=== PATIENT | female | born 1985 | race Hispanic/Latino ===

== ENCOUNTER 2017-07-14 15:52 | Emergency (ER) | payer BC ==
[2017-07-14 16:33] LABS: BASOPHILS % (AUTO) 0.4 % (0.0-5.0); EOSINOPHILS % (AUTO) 1.1 % (0.0-8.0); HEMATOCRIT 44.6 % (36-48); LYMPHOCYTES % (AUTO) 22.8 % (21.0-51.0); MEAN CORPUSCULAR HEMOGLOBIN 28.5 pg (27.0-33.0); MEAN CORPUSCULAR VOLUME 86.3 fL (79-99); MONOCYTES % (AUTO) 8.7 % (3.0-13.0); PLATELET COUNT (AUTO) 172 K/uL (130-400); RED BLOOD CELL COUNT(AUTO) 5.17 MIL/uL (4.00-5.50); RED CELL DISTRIBUTION WIDTH 13.8 % (11.0-15.5); WHITE BLOOD COUNT (AUTO) 12.2 K/uL (4.8-10.8)
[2017-07-14 16:45] LABS: CARBON DIOXIDE 30 mmol/L (21-32); CHLORIDE 104 mmol/L (101-111); GLOMERULAR FILTR. RATE CALC 68 mL/min (>60); GLUCOSE,RANDOM 97 mg/dL (70-105); POTASSIUM 3.8 mmol/L (3.5-5.1); SODIUM SERUM 139 mmol/L (136-145); UREA NITROGEN, BLOOD 11 mg/dL (7-18)
[2017-07-14 16:57] LABS: B-TYPE NATRIURETIC PEPTIDE 9 pg/mL (0-100)
[2017-07-14 17:00] LABS: ALANINE AMINOTRANSFERASE 28 U/L (12-78); ALBUMIN 3.1 g/dL (3.5-5.0); ASPARTATE AMINOTRANSFERASE 20 U/L (10-37); BILIRUBIN,TOTAL 1.2 mg/dL (0.2-1.0); CREATINE KINASE MB < 0.5 ng/mL (0.5-3.6); CREATINE KINASE, TOTAL 60 U/L (21-232); TOTAL PROTEIN, SERUM 7.5 g/dL (6.0-8.3)
[2017-07-14] MEDS ORDERED: CLINDAMYCIN 600 MG/D5% WATER 50 ML IV ONE (18:01)
== END 2017-07-14 19:48 | disposition home or self-care (01) ==
LOC: EDH 15:52
DX: R07.89 Other chest pain (principal); R60.0 Localized edema; I10 Essential (primary) hypertension; E78.5 Hyperlipidemia, unspecified; E11.9 Type 2 diabetes mellitus without complications
CPT/HCPCS: 36415; 71045; 80053; 82550; 82553; 83880; 84484; 85025; 93005; 93971; 96365; 99285; J3490

== ENCOUNTER 2018-11-11 09:53 | Emergency (ER) | payer BC, OTHER ==
[2018-11-11] MEDS ORDERED: DEXAMETHASONE SOD PHOSPHATE 10MG/ML 1ML VIAL ONE (10:04)
[2018-11-11] MEDS ORDERED: SODIUM CHLORIDE 0.9% 100 ML IV ONE (10:05)
[2018-11-11 10:37] LABS: RAPID GROUP A STREP NEGATIVE (NEGATIVE)
[2018-11-11 11:26] LABS: BASOPHILS % (AUTO) 0.5 % (0.0-5.0); EOSINOPHILS % (AUTO) 0.3 % (0.0-8.0); HEMATOCRIT 46.9 % (36-48); MEAN CORPUSCULAR HEMOGLOBIN 28.7 pg (27.0-33.0); MEAN CORPUSCULAR HGB CONC 32.4 g/dL (32.0-36.0); MEAN CORPUSCULAR VOLUME 88.6 fL (79-99); NEUTROPHILS % (AUTO) 81.2 % (40.0-77.0); PLATELET COUNT (AUTO) 177 K/uL (130-400); RED BLOOD CELL COUNT(AUTO) 5.29 MIL/uL (4.00-5.50); RED CELL DISTRIBUTION WIDTH 14.1 % (11.0-15.5); WHITE BLOOD COUNT (AUTO) 15.1 K/uL (4.8-10.8)
[2018-11-11 11:36] LABS: CREATININE 0.9 mg/dL (0.5-1.5); POTASSIUM 3.9 mmol/L (3.5-5.1)
[2018-11-11] MEDS ORDERED: IOHEXOL-350 75 ML VIAL IV ONE (12:11)
== END 2018-11-11 16:42 | disposition home or self-care (01) ==
LOC: EDH 09:53
DX: J03.90 Acute tonsillitis, unspecified (principal); J35.03 Chronic tonsillitis and adenoiditis
CPT/HCPCS: 36415; 70491; 80048; 83605; 85025; 87040 ×2; 87081; 87110; 87804 ×2; 87880; 96374; 96375; 99285; J1100; Q9967

== ENCOUNTER 2020-05-06 14:00 | Emergency (ER) | payer OTHER ==
[2020-05-06] MEDS ORDERED: SODIUM CHLORIDE 0.9% 1000ML 1,000 ML IV ONE (14:42)
[2020-05-06 15:00] LABS: BASOPHILS % (AUTO) 0.1 % (0.0-5.0); EOSINOPHILS % (AUTO) 1.1 % (0.0-8.0); HEMATOCRIT 44.2 % (36-48); LYMPHOCYTES % (AUTO) 19.2 % (21.0-51.0); MEAN CORPUSCULAR HEMOGLOBIN 26.9 pg (27.0-33.0); MEAN CORPUSCULAR HGB CONC 30.8 g/dL (32.0-36.0); MEAN CORPUSCULAR VOLUME 87.4 fL (79-99); MONOCYTES % (AUTO) 6.3 % (3.0-13.0); PLATELET COUNT (AUTO) 229 K/uL (130-400); RED BLOOD CELL COUNT(AUTO) 5.06 MIL/uL (4.00-5.50); RED CELL DISTRIBUTION WIDTH 15.5 % (11.0-15.5); WHITE BLOOD COUNT (AUTO) 10.9 K/uL (4.8-10.8)
[2020-05-06 15:11] LABS: CREATININE 1.3 mg/dL (0.5-1.5); POTASSIUM 4.4 mmol/L (3.5-5.1)
[2020-05-06 15:15] LABS: ALBUMIN 2.6 g/dL (3.5-5.0); BILIRUBIN,TOTAL 0.7 mg/dL (0.2-1.0)
[2020-05-06] MEDS ORDERED: IOHEXOL-350 75 ML VIAL IV ONE (16:06)
[2020-05-06 16:11] LABS: APPEARANCE,URINE Clear (CLEAR); BILIRUBIN,URINE Negative (NEGATIVE); COLOR,URINE Yellow (YELLOW); GLUCOSE, URINE (UA) Negative (NEGATIVE); KETONES,URINE Negative (NEGATIVE); LEUKOCYTE ESTERASE ,URINE Negative (NEGATIVE); NITRATE,URINE Negative (NEGATIVE); OCCULT BLOOD,URINE Negative (NEGATIVE); PROTEIN,URINE 300 mg/dL (NEGATIVE); UROBILINOGEN,URINE 0.2 mg/dL (0.2-1.0)
[2020-05-06 16:13] LABS: HCG,QUAL RESULT NEGATIVE (NEGATIVE)
[2020-05-06 16:23] LABS: BACTERIA,URINE Few /HPF (None Seen); MUCUS,URINE Few LPF (None Seen); RBC,URINE 0-1 /HPF (0-1); SQUAMOUS EPITHELIAL CELL,UR Few /HPF (0-2); WBC,URINE 0-1 /HPF (0-1)
[2020-05-06] MEDS ORDERED: ONDANSETRON HCL 4 MG/2 ML VIAL ONE (16:47)
[2020-05-06] MEDS ORDERED: KETOROLAC TROMETHAMINE 30MG/ML ONE (16:47)
[2020-05-06] MEDS ORDERED: MORPHINE SULFATE 2 MG/ML 1ML SYG ONE (16:47)
[2020-05-06] MEDS ORDERED: CEFTRIAXONE SODIUM 500 MG VIAL ONE (18:05)
[2020-05-06] MEDS ORDERED: AZITHROMYCIN 250 MG TABLET PO ONE (18:06)
[2020-05-06] MEDS ORDERED: LIDOCAINE HCL-MPF 1% 2ML VIAL ONE (18:06)
== END 2020-05-06 18:28 | disposition home or self-care (01) ==
LOC: EDH 14:00
DX: R10.2 Pelvic and perineal pain (principal); E78.5 Hyperlipidemia, unspecified; E11.9 Type 2 diabetes mellitus without complications; I10 Essential (primary) hypertension; Z87.891 Personal history of nicotine dependence
CPT/HCPCS: 36415; 74177; 76856; 80053; 81001; 81025; 83690; 84702; 85025; 87486; 87797; 96361; 96372; 96374; 96375; 99285; J0696; J1885; J2405; J3490; J7030; Q9967

== ENCOUNTER 2020-09-18 23:12 | Inpatient (IN) | payer SELFPAY ==
[~2020-09-18] VITALS: Ht 160 cm; Wt 212.9 kg
[2020-09-18 23:50] LABS: BASOPHILS % (AUTO) 0.2 % (0.0-5.0); EOSINOPHILS % (AUTO) 0.3 % (0.0-8.0); HEMATOCRIT 39.3 % (36-48); LYMPHOCYTES % (AUTO) 3.9 % (21.0-51.0); MEAN CORPUSCULAR HEMOGLOBIN 26.3 pg (27.0-33.0); MEAN CORPUSCULAR VOLUME 84.7 fL (79-99); MONOCYTES % (AUTO) 3.5 % (3.0-13.0); PLATELET COUNT (AUTO) 238 K/uL (130-400); RED BLOOD CELL COUNT(AUTO) 4.64 MIL/uL (4.00-5.50)
[2020-09-18 23:53] LABS: WHITE BLOOD COUNT (AUTO) 31.7 K/uL (4.8-10.8)
[2020-09-18 23:55] LABS: CARBON DIOXIDE 23 mmol/L (21-32); CHLORIDE 100 mmol/L (101-111); GLOMERULAR FILTR. RATE CALC 30 mL/min (>60); GLUCOSE,RANDOM 128 mg/dL (70-105); POTASSIUM 4.6 mmol/L (3.5-5.1); SODIUM SERUM 136 mmol/L (136-145); UREA NITROGEN, BLOOD 22 mg/dL (7-18)
[2020-09-18 23:56] LABS: INR 1.21 (0.85-1.15)
[2020-09-18 23:58] LABS: PARTIAL THROMBOPLASTIN TIME 32.4 SEC (26.3-35.5)
[2020-09-19 00:07] LABS: ALANINE AMINOTRANSFERASE 20 U/L (12-78); ALBUMIN 2.4 g/dL (3.5-5.0); ASPARTATE AMINOTRANSFERASE 24 U/L (10-37); BILIRUBIN,TOTAL 1.5 mg/dL (0.2-1.0); CREATINE KINASE, TOTAL 107 U/L (21-232); MYOGLOBIN 332 ng/mL (10-92); TROPONIN I < 0.04 ng/mL (0.00-0.06)
[2020-09-19] MEDS ORDERED: ACETAMINOPHEN EXTRA STRENGTH 500 MG TABLET ONE (00:11)
[2020-09-19] MEDS ORDERED: SODIUM CHLORIDE 0.9% 1000ML 3,000 ML IV ONE (00:11)
[2020-09-19] MEDS ORDERED: ZOSYN 3.375GM+NS 50ML 50 ML IV ONE ×2 (00:11→07:56)
[2020-09-19 01:25] LABS: BAND NEUTROPHILS % (MANUAL) 15 % (0-2); LYMPHOCYTES % (MANUAL) 6 % (22-44); MONOCYTES % (MANUAL) 3 % (2-9); SEGMENTED NEUTROPHILS % 76 % (40-70)
[2020-09-19 01:26] LABS: MAN.DIFF COMMENT-IMPRESSION MANUAL DIFFERENTIAL; PLATELET MORPHOLOGY COMMENT ADEQUATE
[2020-09-19] MEDS ORDERED: MAG HYDROX/AL HYDROX/SIMETH ES 30 ML SUSP UDCUP PO PRN (01:30)
[2020-09-19] MEDS ORDERED: NITROGLYCERIN 0.4 MG SL TAB SL PRN (01:30)
[2020-09-19] MEDS ORDERED: DiphenhydrAMINE HCL 50 MG/ML VIAL IV PRN (01:30)
[2020-09-19] MEDS ORDERED: ACETAMINOPHEN 325 MG TAB PO PRN (01:30)
[2020-09-19] MEDS ORDERED: GUAIFENESIN-DM 200/20 MG 10 ML PO PRN (01:30)
[2020-09-19] MEDS ORDERED: VANCOMYCIN PROTOCOL PER PHARMACY IV PRN (01:30)
[2020-09-19] MEDS ORDERED: DIPHENHYDRAMINE HCL 25 MG CAPSULE PO PRN (01:30)
[2020-09-19] MEDS: LACTATED RINGERS 1000ML 1,000 ML IV SCH ×2 (01:30→11:30)
[2020-09-19] MEDS ORDERED: RENAL DOSE IV SCH (01:30)
[2020-09-19] MEDS ORDERED: ONDANSETRON HCL 4 MG/2 ML VIAL IV PRN (01:30)
[2020-09-19] MEDS ORDERED: LACTULOSE 20 GM/30 ML UDCUP PO PRN (01:30)
[2020-09-19] MEDS ORDERED: VANCOMYCIN 1GM+NS 250ML 250 ML IV SCH (04:00)
[2020-09-19] MEDS ORDERED: VANCOMYCIN 1GM+NS 250ML 250 ML IV ONE (04:47)
[2020-09-19] MEDS ORDERED: ENOXAPARIN SODIUM 40 MG/0.4 ML SYRINGE SQ ONE (07:56)
[2020-09-19] MEDS ORDERED: ZOSYN 3.375GM+NS 50ML 50 ML IV SCH (08:00)
[2020-09-19] MEDS: FAMOTIDINE 20MG TAB 20 MG TAB PO SCH (10:38)
[2020-09-19] MEDS: ENOXAPARIN SODIUM 40 MG/0.4 ML SYRINGE SQ SCH (10:38)
[2020-09-19] MEDS ORDERED: CEFEPIME HCL 2 GM VIAL IVP SCH ×2 (11:00→11:30)
[2020-09-19 12:00] VITALS: BP 114/58
[2020-09-19 16:00] VITALS: BP 112/68
[2020-09-19] MEDS ORDERED: CEFEPIME HCL 1 GM VIAL ONE (16:15)
[2020-09-19] MEDS: ACETAMINOPHEN 325 MG TAB PO PRN (16:22)
[2020-09-19 21:17] VITALS: BP 135/51
[2020-09-19] MEDS: CEFEPIME HCL 2 GM VIAL IVP SCH (21:52)
[2020-09-19 23:57] VITALS: BP 135/72
[2020-09-20 04:56] VITALS: BP 131/71
[2020-09-20] MEDS: LACTATED RINGERS 1000ML 1,000 ML IV SCH (05:12)
[2020-09-20 05:29] LABS: HEMATOCRIT 36.1 % (36-48); MEAN CORPUSCULAR HEMOGLOBIN 26.3 pg (27.0-33.0); MEAN CORPUSCULAR HGB CONC 29.9 g/dL (32.0-36.0); MEAN CORPUSCULAR VOLUME 87.8 fL (79-99); PLATELET COUNT (AUTO) 203 K/uL (130-400); RED BLOOD CELL COUNT(AUTO) 4.11 MIL/uL (4.00-5.50); RED CELL DISTRIBUTION WIDTH 15.3 % (11.0-15.5); WHITE BLOOD COUNT (AUTO) 12.1 K/uL (4.8-10.8)
[2020-09-20 05:37] LABS: BAND NEUTROPHILS % (MANUAL) 19 % (0-2); EOSINOPHILS % (MANUAL) 1 % (1-6); LYMPHOCYTES % (MANUAL) 21 % (22-44); MAN.DIFF COMMENT-IMPRESSION MANUAL DIFFERENTIAL; MONOCYTES % (MANUAL) 3 % (2-9); PLATELET MORPHOLOGY COMMENT ADEQUATE; SEGMENTED NEUTROPHILS % 56 % (40-70)
[2020-09-20 05:39] LABS: HEMOGLOBIN A1C 6.4 % (4.0-6.0)
[2020-09-20 05:46] LABS: CREATININE 1.5 mg/dL (0.5-1.5); MAGNESIUM 1.8 mg/dL (1.80-2.40); PHOSPHORUS 4.1 mg/dL (2.5-4.9); POTASSIUM 4.4 mmol/L (3.5-5.1); URIC ACID 8.3 mg/dL (2.6-7.2)
[2020-09-20 08:19] LABS: APPEARANCE,URINE Clear (CLEAR); BILIRUBIN,URINE Negative (NEGATIVE); COLOR,URINE Yellow (YELLOW); GLUCOSE, URINE (UA) Negative (NEGATIVE); KETONES,URINE Negative (NEGATIVE); LEUKOCYTE ESTERASE ,URINE Small (NEGATIVE); NITRATE,URINE Negative (NEGATIVE); OCCULT BLOOD,URINE Large (NEGATIVE); PROTEIN,URINE POS 2+ mg/dL (NEGATIVE); UROBILINOGEN,URINE 0.2 mg/dL (0.2-1.0)
[2020-09-20 08:35] LABS: BACTERIA,URINE Few /HPF (None Seen); RBC,URINE TNTC /HPF (0-1); SQUAMOUS EPITHELIAL CELL,UR 0-2 /HPF (0-2)
[2020-09-20 09:20] VITALS: BP 156/86
[2020-09-20] MEDS: CEFEPIME HCL 2 GM VIAL IVP SCH ×2 (10:11→20:14)
[2020-09-20] MEDS: ENOXAPARIN SODIUM 40 MG/0.4 ML SYRINGE SQ SCH (10:12)
[2020-09-20] MEDS: FAMOTIDINE 20MG TAB 20 MG TAB PO SCH (10:12)
[2020-09-20] MEDS: Vitamin B Complex/Vit C/Folic Acid PO SCH (10:12)
[2020-09-20 12:08] VITALS: BP 130/83
[2020-09-20] MEDS ORDERED: PHARMACY COMMUNICATION MISC SCH (16:45)
[2020-09-20] MEDS ORDERED: HEPARIN 25000 UNITS/250 ML D5W 250 ML IV PRN (17:15)
[2020-09-20 18:50] VITALS: BP 155/87
[2020-09-20 20:00] VITALS: BP 150/87
[2020-09-20] MEDS: APIXABAN 5 MG TABLET PO SCH (20:15)
[2020-09-20] MEDS: ACETAMINOPHEN 325 MG TAB PO PRN (20:17)
[2020-09-21] VITALS (7 sets, daily range): BP systolic 148–173; BP diastolic 74–104
[2020-09-21 05:53] LABS: BASOPHILS % (AUTO) 0.1 % (0.0-5.0); EOSINOPHILS % (AUTO) 1.1 % (0.0-8.0); HEMATOCRIT 35.3 % (36-48); LYMPHOCYTES % (AUTO) 17.3 % (21.0-51.0); MEAN CORPUSCULAR HEMOGLOBIN 26.2 pg (27.0-33.0); MEAN CORPUSCULAR VOLUME 87.4 fL (79-99); MONOCYTES % (AUTO) 8.6 % (3.0-13.0); NEUTROPHILS % (AUTO) 72.5 % (40.0-77.0); PLATELET COUNT (AUTO) 200 K/uL (130-400); RED BLOOD CELL COUNT(AUTO) 4.04 MIL/uL (4.00-5.50); RED CELL DISTRIBUTION WIDTH 15.2 % (11.0-15.5); WHITE BLOOD COUNT (AUTO) 7.9 K/uL (4.8-10.8)
[2020-09-21 05:59] LABS: CREATININE 1.2 mg/dL (0.5-1.5); POTASSIUM 4.5 mmol/L (3.5-5.1)
[2020-09-21] MEDS: FAMOTIDINE 20MG TAB 20 MG TAB PO SCH (09:52)
[2020-09-21] MEDS: Vitamin B Complex/Vit C/Folic Acid PO SCH (09:52)
[2020-09-21] MEDS: APIXABAN 5 MG TABLET PO SCH ×2 (09:53→20:25)
[2020-09-21] MEDS: CEFEPIME HCL 2 GM VIAL IVP SCH ×2 (09:54→20:26)
[2020-09-21] MEDS: ACETAMINOPHEN 325 MG TAB PO PRN ×2 (10:02→20:27)
[2020-09-22] VITALS (8 sets, daily range): BP systolic 143–186; BP diastolic 87–108
[2020-09-22] MEDS ORDERED: METOPROLOL TARTRATE 25 MG TAB ONE (00:45)
[2020-09-22] MEDS ORDERED: LABETALOL HCL 5 MG/ML 20ML VIAL IV ONE (00:49)
[2020-09-22] MEDS ORDERED: METO-391 PO (01:04)
[2020-09-22] MEDS ORDERED: LOSA25TA41 PO (01:04)
[2020-09-22] MEDS ORDERED: METF-444 PO (01:04)
[2020-09-22] MEDS ORDERED: METH-811 PO (01:04)
[2020-09-22] MEDS ORDERED: FURO20TA4 PO (01:04)
[2020-09-22] MEDS ORDERED: ALLO100T PO (01:04)
[2020-09-22 04:32] LABS: HEMATOCRIT 37.2 % (36-48); MEAN CORPUSCULAR HEMOGLOBIN 25.4 pg (27.0-33.0); MEAN CORPUSCULAR HGB CONC 29.3 g/dL (32.0-36.0); MEAN CORPUSCULAR VOLUME 86.7 fL (79-99); NUCLEATED RED BLOOD CELLS 0.2 % (0.0-0.19); PLATELET COUNT (AUTO) 215 K/uL (130-400); RED BLOOD CELL COUNT(AUTO) 4.29 MIL/uL (4.00-5.50); WHITE BLOOD COUNT (AUTO) 9.1 K/uL (4.8-10.8)
[2020-09-22 04:50] LABS: CREATININE 1.2 mg/dL (0.5-1.5); POTASSIUM 4.4 mmol/L (3.5-5.1)
[2020-09-22 04:59] LABS: BAND NEUTROPHILS % (MANUAL) 3 % (0-2); BASOPHILS % (MANUAL) 1 % (0-2); LYMPHOCYTES % (MANUAL) 21 % (22-44); MAN.DIFF COMMENT-IMPRESSION MANUAL DIFFERENTIAL; MONOCYTES % (MANUAL) 7 % (2-9); PLATELET MORPHOLOGY COMMENT ADEQUATE; SEGMENTED NEUTROPHILS % 68 % (40-70)
[2020-09-22] MEDS ORDERED: METOPROLOL TARTRATE 25 MG TAB PO SCH (09:00)
[2020-09-22] MEDS: CEFEPIME HCL 2 GM VIAL IVP SCH ×2 (11:31→20:54)
[2020-09-22] MEDS: LOSARTAN 25 MG TABLET PO SCH (11:32)
[2020-09-22] MEDS: APIXABAN 5 MG TABLET PO SCH ×2 (11:32→20:54)
[2020-09-22] MEDS: Vitamin B Complex/Vit C/Folic Acid PO SCH (11:33)
[2020-09-22] MEDS: METOPROLOL SUCCINATE 50 MG TAB.SR.24H PO SCH (11:33)
[2020-09-22] MEDS: FUROSEMIDE 20 MG TABLET PO SCH ×2 (11:33→20:55)
[2020-09-22] MEDS: FAMOTIDINE 20MG TAB 20 MG TAB PO SCH (11:38)
[2020-09-22] MEDS: ACETAMINOPHEN 325 MG TAB PO PRN (12:39)
[2020-09-22] MEDS ORDERED: MORPHINE SULFATE 2 MG/ML 1ML SYG ONE (20:25)
[2020-09-22] MEDS: MORPHINE SULFATE 2 MG/ML 1ML SYG IVP PRN (20:55)
[2020-09-23 04:00] VITALS: BP 146/80
[2020-09-23 05:32] LABS: BASOPHILS % (AUTO) 0.3 % (0.0-5.0); EOSINOPHILS % (AUTO) 2.4 % (0.0-8.0); HEMATOCRIT 35.2 % (36-48); LYMPHOCYTES % (AUTO) 32.8 % (21.0-51.0); MEAN CORPUSCULAR HEMOGLOBIN 25.7 pg (27.0-33.0); MEAN CORPUSCULAR HGB CONC 30.1 g/dL (32.0-36.0); MEAN CORPUSCULAR VOLUME 85.2 fL (79-99); MONOCYTES % (AUTO) 9.8 % (3.0-13.0); NUCLEATED RED BLOOD CELLS 0.4 % (0.0-0.19); PLATELET COUNT (AUTO) 214 K/uL (130-400); RED BLOOD CELL COUNT(AUTO) 4.13 MIL/uL (4.00-5.50); RED CELL DISTRIBUTION WIDTH 14.9 % (11.0-15.5); WHITE BLOOD COUNT (AUTO) 7.6 K/uL (4.8-10.8)
[2020-09-23 05:44] LABS: POTASSIUM 3.9 mmol/L (3.5-5.1)
[2020-09-23 07:00] VITALS: BP 159/84
[2020-09-23 11:00] VITALS: BP 157/82
[2020-09-23] MEDS: LOSARTAN 25 MG TABLET PO SCH (11:14)
[2020-09-23] MEDS: APIXABAN 5 MG TABLET PO SCH ×2 (11:14→21:07)
[2020-09-23] MEDS: Vitamin B Complex/Vit C/Folic Acid PO SCH (11:15)
[2020-09-23] MEDS: FUROSEMIDE 20 MG TABLET PO SCH ×2 (11:15→21:07)
[2020-09-23] MEDS: FAMOTIDINE 20MG TAB 20 MG TAB PO SCH (11:15)
[2020-09-23] MEDS: MORPHINE SULFATE 2 MG/ML 1ML SYG IVP PRN ×2 (11:16→16:18)
[2020-09-23] MEDS: METOPROLOL SUCCINATE 50 MG TAB.SR.24H PO SCH (11:16)
[2020-09-23] MEDS: CEFEPIME HCL 2 GM VIAL IVP SCH (11:17)
[2020-09-23 16:00] VITALS: BP 167/92
[2020-09-23] MEDS: LABETALOL 20 MG/4 ML DISP.SYRIN IV PRN (16:06)
[2020-09-23] MEDS: LEVOFLOXACIN 750 MG TABLET PO SCH (16:07)
[2020-09-23 19:59] VITALS: BP 166/91
[2020-09-23 23:35] VITALS: BP 163/95
[2020-09-24 04:00] VITALS: BP 140/77
[2020-09-24 05:05] LABS: BASOPHILS % (AUTO) 0.2 % (0.0-5.0); EOSINOPHILS % (AUTO) 2.2 % (0.0-8.0); LYMPHOCYTES % (AUTO) 31.8 % (21.0-51.0); MEAN CORPUSCULAR HEMOGLOBIN 25.2 pg (27.0-33.0); MEAN CORPUSCULAR HGB CONC 29.4 g/dL (32.0-36.0); MEAN CORPUSCULAR VOLUME 85.5 fL (79-99); MONOCYTES % (AUTO) 8.6 % (3.0-13.0); NEUTROPHILS % (AUTO) 56.3 % (40.0-77.0); PLATELET COUNT (AUTO) 216 K/uL (130-400); RED BLOOD CELL COUNT(AUTO) 4.21 MIL/uL (4.00-5.50); RED CELL DISTRIBUTION WIDTH 14.6 % (11.0-15.5); WHITE BLOOD COUNT (AUTO) 8.7 K/uL (4.8-10.8)
[2020-09-24 05:24] LABS: ALBUMIN 1.9 g/dL (3.5-5.0); BILIRUBIN,TOTAL 0.6 mg/dL (0.2-1.0); CRP QUANTITATIVE 44.4 mg/L (0.00-9.0); POTASSIUM 3.7 mmol/L (3.5-5.1); TOTAL PROTEIN, SERUM 6.9 g/dL (6.0-8.3)
[2020-09-24 06:39] LABS: ERYTHROCYTE SEDIMENTATION RATE 98 MM/HR (0-20)
[2020-09-24] MEDS: METOPROLOL SUCCINATE 50 MG TAB.SR.24H PO SCH (08:15)
[2020-09-24] MEDS: APIXABAN 5 MG TABLET PO SCH ×2 (08:16→20:39)
[2020-09-24] MEDS: FUROSEMIDE 20 MG TABLET PO SCH ×2 (08:18→20:42)
[2020-09-24] MEDS: FAMOTIDINE 20MG TAB 20 MG TAB PO SCH (08:19)
[2020-09-24] MEDS: Vitamin B Complex/Vit C/Folic Acid PO SCH (08:21)
[2020-09-24] MEDS: LABETALOL 20 MG/4 ML DISP.SYRIN IV PRN ×2 (08:23→16:23)
[2020-09-24] MEDS: LOSARTAN 25 MG TABLET PO SCH (08:59)
[2020-09-24 09:00] VITALS: BP 176/90
[2020-09-24] MEDS: MORPHINE SULFATE 2 MG/ML 1ML SYG IVP PRN (09:01)
[2020-09-24 11:39] VITALS: BP 117/95
[2020-09-24] MEDS: LEVOFLOXACIN 750 MG TABLET PO SCH (16:25)
[2020-09-24 17:01] VITALS: BP 174/93
[2020-09-24 20:02] VITALS: BP 143/84
[2020-09-24 23:54] VITALS: BP 153/83
[2020-09-25] MEDS: MORPHINE SULFATE 2 MG/ML 1ML SYG IVP PRN (02:20)
[2020-09-25 03:35] VITALS: BP 154/84
[2020-09-25 06:15] LABS: BASOPHILS % (AUTO) 0.3 % (0.0-5.0); EOSINOPHILS % (AUTO) 1.4 % (0.0-8.0); HEMATOCRIT 39.1 % (36-48); LYMPHOCYTES % (AUTO) 19.8 % (21.0-51.0); MEAN CORPUSCULAR HGB CONC 29.9 g/dL (32.0-36.0); MEAN CORPUSCULAR VOLUME 83.5 fL (79-99); MONOCYTES % (AUTO) 7.9 % (3.0-13.0); NEUTROPHILS % (AUTO) 68.9 % (40.0-77.0); PLATELET COUNT (AUTO) 254 K/uL (130-400); RED BLOOD CELL COUNT(AUTO) 4.68 MIL/uL (4.00-5.50); RED CELL DISTRIBUTION WIDTH 14.6 % (11.0-15.5); WHITE BLOOD COUNT (AUTO) 12.2 K/uL (4.8-10.8)
[2020-09-25 06:23] LABS: CREATININE 1.1 mg/dL (0.5-1.5); POTASSIUM 3.8 mmol/L (3.5-5.1)
[2020-09-25 08:38] VITALS: BP 150/80
[2020-09-25] MEDS: FAMOTIDINE 20MG TAB 20 MG TAB PO SCH (09:33)
[2020-09-25] MEDS: FUROSEMIDE 20 MG TABLET PO SCH ×2 (09:33→21:45)
[2020-09-25] MEDS: METOPROLOL SUCCINATE 50 MG TAB.SR.24H PO SCH (09:33)
[2020-09-25] MEDS: APIXABAN 5 MG TABLET PO SCH ×2 (09:33→21:44)
[2020-09-25] MEDS: LOSARTAN 25 MG TABLET PO SCH (09:34)
[2020-09-25] MEDS: Vitamin B Complex/Vit C/Folic Acid PO SCH (09:34)
[2020-09-25 12:00] VITALS: BP 139/82
[2020-09-25] MEDS: LEVOFLOXACIN 750 MG TABLET PO SCH (13:13)
[2020-09-25 17:02] VITALS: BP 134/74
[2020-09-25 20:00] VITALS: BP 141/88
[2020-09-26] VITALS: BP 150/88
[2020-09-26] MEDS ORDERED: HYDROXYZINE HCL 25 MG TABLET PO SCH (00:45)
[2020-09-26] MEDS ORDERED: HYDROXYZINE HCL 25 MG TABLET ONE (00:46)
[2020-09-26 04:00] VITALS: BP 166/95
[2020-09-26] MEDS: ACETAMINOPHEN 325 MG TAB PO PRN (04:58)
[2020-09-26 07:50] VITALS: BP 181/99
[2020-09-26] MEDS: Vitamin B Complex/Vit C/Folic Acid PO SCH (08:30)
[2020-09-26] MEDS: APIXABAN 5 MG TABLET PO SCH (08:30)
[2020-09-26] MEDS: LOSARTAN 25 MG TABLET PO SCH (08:30)
[2020-09-26] MEDS: METOPROLOL SUCCINATE 50 MG TAB.SR.24H PO SCH (08:31)
[2020-09-26] MEDS: FAMOTIDINE 20MG TAB 20 MG TAB PO SCH (08:31)
[2020-09-26] MEDS: FUROSEMIDE 20 MG TABLET PO SCH (08:31)
[2020-09-26 11:29] VITALS: BP 161/92
[2020-09-26] MEDS ORDERED: HYDROCHLOROTHIAZIDE 25 MG TABLET PO SCH (12:00)
[2020-09-26] MEDS: LEVOFLOXACIN 750 MG TABLET PO SCH (12:07)
[2020-09-26 12:25] LABS: BASOPHILS % (AUTO) 0.2 % (0.0-5.0); EOSINOPHILS % (AUTO) 1.4 % (0.0-8.0); HEMATOCRIT 36.1 % (36-48); LYMPHOCYTES % (AUTO) 26.4 % (21.0-51.0); MEAN CORPUSCULAR HEMOGLOBIN 26.2 pg (27.0-33.0); MEAN CORPUSCULAR HGB CONC 31.3 g/dL (32.0-36.0); MEAN CORPUSCULAR VOLUME 83.6 fL (79-99); PLATELET COUNT (AUTO) 239 K/uL (130-400); RED BLOOD CELL COUNT(AUTO) 4.32 MIL/uL (4.00-5.50); RED CELL DISTRIBUTION WIDTH 14.6 % (11.0-15.5); WHITE BLOOD COUNT (AUTO) 9.7 K/uL (4.8-10.8)
[2020-09-26 12:37] LABS: CREATININE 1.2 mg/dL (0.5-1.5); CRP QUANTITATIVE 75.8 mg/L (0.00-9.0); POTASSIUM 3.8 mmol/L (3.5-5.1)
[2020-09-26] MEDS ORDERED: METO50TA9 PO (12:45)
[2020-09-26] MEDS ORDERED: LOSA25TA2 PO (12:45)
[2020-09-26] MEDS ORDERED: LEVO750T46 PO (12:45)
[2020-09-26] MEDS ORDERED: HYDR25TA PO (12:45)
[2020-09-26] MEDS ORDERED: AMMO385C4 TP (12:45)
[2020-09-26] MEDS ORDERED: APIX5TAB PO (12:45)
[2020-09-26 13:32] LABS: ERYTHROCYTE SEDIMENTATION RATE 100 MM/HR (0-20)
[2020-09-26 14:30] VITALS: BP 148/85
[2020-09-26 15:54] VITALS: BP 147/90
[2020-09-27] MEDS ORDERED: HYDROCHLOROTHIAZIDE 25 MG TABLET PO SCH (09:00)
[2020-09-28] MEDS ORDERED: APIXABAN 5 MG TABLET PO SCH (09:00)
== END 2020-09-26 17:30 | disposition home or self-care (01) | DRG 872 ==
LOC: EDH 23:12 → EDHIP 23:13 → 3CH 09-19 09:14
PROVIDERS: ADMIT Family Medicine; ATTEND Family Medicine
PROC: 5A09357 Assistance with Respiratory Ventilation, Less than 24 Consecutive Hours, Continuous Positive Airway Pressure (ICD-10-PCS; principal; 2020-09-22)
PROC: 5A09357 Assistance with Respiratory Ventilation, Less than 24 Consecutive Hours, Continuous Positive Airway Pressure (ICD-10-PCS; 2020-09-23)
PROC: 5A09357 Assistance with Respiratory Ventilation, Less than 24 Consecutive Hours, Continuous Positive Airway Pressure (ICD-10-PCS; 2020-09-24)
PROC: 5A09357 Assistance with Respiratory Ventilation, Less than 24 Consecutive Hours, Continuous Positive Airway Pressure (ICD-10-PCS; 2020-09-26)
DX: A41.50 Gram-negative sepsis, unspecified (principal); L03.115 Cellulitis of right lower limb; L03.116 Cellulitis of left lower limb; N17.9 Acute kidney failure, unspecified; E66.2 Morbid (severe) obesity with alveolar hypoventilation; I82.411 Acute embolism and thrombosis of right femoral vein; Z68.45 Body mass index [BMI] 70 or greater, adult; R65.20 Severe sepsis without septic shock; E78.5 Hyperlipidemia, unspecified; N18.9 Chronic kidney disease, unspecified; E11.22 Type 2 diabetes mellitus with diabetic chronic kidney disease; E78.00 Pure hypercholesterolemia, unspecified; I12.9 Hypertensive chronic kidney disease with stage 1 through stage 4 chronic kidney disease, or unspecified chronic kidney disease; I87.2 Venous insufficiency (chronic) (peripheral); I89.0 Lymphedema, not elsewhere classified
CPT/HCPCS: 36415; 71045; 73630; 76882; 80048; 80053; 81001; 81241; 82550; 82948; 83036; 83090; 83605; 83735; 83874; 84100; 84145; 84484; 84550; 85025; 85300; 85303; 85306; 85610; 85651; 85730; 85732; 86140; 87040; 87070; 87076; 87077; 87186; 93005; 93970; 94660; 94760; 97039; A4606; G0378; J0692; J1200; J1650; J2543; J3370; J3490; J7030; J7120

== ENCOUNTER 2021-03-22 13:42 | Inpatient (IN) | payer SELFPAY ==
[~2021-03-22] VITALS: Ht 160 cm; Wt 199.4 kg
[~2021-03-22 13:42] MED LIST: ALLO100T PO; AMMO385C4 TP; APIX5TAB PO; FURO20TA4 PO; HYDR25TA PO; LEVO750T46 PO; LOSA25TA2 PO; METF-444 PO; METH-811 PO; METO50TA9 PO
[2021-03-22] MEDS ORDERED: VANCOMYCIN 1G VIAL IVPB STA (15:53)
[2021-03-22] MEDS ORDERED: 0.9%NACL 50ML 50 ML IV ONE (16:46)
[2021-03-22 16:55] LABS: BASOPHILS % (AUTO) 0.1 % (0.0-5.0); HEMATOCRIT 34.9 % (36-48); LYMPHOCYTES % (AUTO) 17.3 % (21.0-51.0); MEAN CORPUSCULAR HEMOGLOBIN 24.9 pg (27.0-33.0); MEAN CORPUSCULAR HGB CONC 30.1 g/dL (32.0-36.0); MEAN CORPUSCULAR VOLUME 82.9 fL (79-99); MONOCYTES % (AUTO) 6.7 % (3.0-13.0); NEUTROPHILS % (AUTO) 73.4 % (40.0-77.0); PLATELET COUNT (AUTO) 301 K/uL (130-400); RED BLOOD CELL COUNT(AUTO) 4.21 MIL/uL (4.00-5.50); RED CELL DISTRIBUTION WIDTH 15.9 % (11.0-15.5); WHITE BLOOD COUNT (AUTO) 10.8 K/uL (4.8-10.8)
[2021-03-22 17:10] LABS: CREATININE 1.4 mg/dL (0.5-1.5); POTASSIUM 4.4 mmol/L (3.5-5.1)
[2021-03-22 17:15] LABS: ALBUMIN 2.7 g/dL (3.5-5.0); BILIRUBIN,TOTAL 0.7 mg/dL (0.2-1.0); TOTAL PROTEIN, SERUM 9.1 g/dL (6.0-8.3)
[2021-03-22] MEDS: ZOSYN 3.375GM+NS 50ML 50 ML IV SCH ×2 (17:24→22:15)
[2021-03-22] MEDS ORDERED: VANCOMYCIN 1G/250ML KIT 250 ML IV ONE (17:51)
[2021-03-22] MEDS ORDERED: ONDANSETRON 4MG INJ IV PRN (20:00)
[2021-03-22] MEDS ORDERED: VANCOMYCIN PROTOCOL PER PHARMACY IV PRN (20:00)
[2021-03-22] MEDS ORDERED: COMPOUND IV REFRIGERATED 1 EACH IVSOLN MISC PRN (20:30)
[2021-03-22] MEDS: INSULIN HUMULIN R 100 UNIT/ML 3ML SQ SCH (21:00)
[2021-03-22] MEDS ORDERED: ZOSYN 3.375GM+NS 50ML 50 ML IV SCH (21:00)
[2021-03-22] MEDS: FAMOTIDINE 20MG TAB PO SCH (21:22)
[2021-03-22 23:45] VITALS: BP 168/89
[2021-03-23] MEDS: HYDROCODONE/ACETAMINOPHEN 5/325 MG TAB PO PRN ×2 (00:13→11:02)
[2021-03-23 04:00] VITALS: BP 144/91
[2021-03-23 04:42] LABS: BASOPHILS % (AUTO) 0.1 % (0.0-5.0); EOSINOPHILS % (AUTO) 3.1 % (0.0-8.0); HEMATOCRIT 34.1 % (36-48); LYMPHOCYTES % (AUTO) 24.5 % (21.0-51.0); MEAN CORPUSCULAR HEMOGLOBIN 25.2 pg (27.0-33.0); MEAN CORPUSCULAR HGB CONC 29.9 g/dL (32.0-36.0); MEAN CORPUSCULAR VOLUME 84.2 fL (79-99); MONOCYTES % (AUTO) 7.3 % (3.0-13.0); NEUTROPHILS % (AUTO) 64.4 % (40.0-77.0); PLATELET COUNT (AUTO) 281 K/uL (130-400); RED BLOOD CELL COUNT(AUTO) 4.05 MIL/uL (4.00-5.50); RED CELL DISTRIBUTION WIDTH 15.9 % (11.0-15.5); WHITE BLOOD COUNT (AUTO) 8.8 K/uL (4.8-10.8)
[2021-03-23 04:58] LABS: CREATININE 1.3 mg/dL (0.5-1.5); MAGNESIUM 1.9 mg/dL (1.80-2.40); PHOSPHORUS 4.2 mg/dL (2.5-4.9)
[2021-03-23 05:03] LABS: HEMOGLOBIN A1C 5.9 % (4.0-6.0)
[2021-03-23] MEDS: ZOSYN 3.375GM+NS 50ML 50 ML IV SCH ×2 (05:15→14:00)
[2021-03-23] MEDS: INSULIN HUMULIN R 100 UNIT/ML 3ML SQ SCH ×4 (06:10→20:12)
[2021-03-23] MEDS ORDERED: VANCOMYCIN 1.75GM/250ML NS IV SCH ×2 (08:00)
[2021-03-23 08:17] VITALS: BP 130/85
[2021-03-23] MEDS: ENOXAPARIN SODIUM 40 MG/0.4 ML SYRINGE SQ SCH (09:00)
[2021-03-23] MEDS ORDERED: VANCOMYCIN 1G 1.75 GM in 0.9% NACL 250ML 250 ML IV SCH (11:00)
[2021-03-23] MEDS: FUROSEMIDE 40 MG TABLET PO SCH (11:02)
[2021-03-23] MEDS: FAMOTIDINE 20MG TAB PO SCH ×2 (11:02→20:14)
[2021-03-23] MEDS: ALLOPURINOL 100 MG TABLET PO SCH (11:02)
[2021-03-23 11:48] VITALS: BP 132/78
[2021-03-23] MEDS: VANCOMYCIN 1.75GM/250ML NS IV SCH ×4 (13:12→23:27)
[2021-03-23 16:23] VITALS: BP 134/68
[2021-03-23 20:25] VITALS: BP 149/75
[2021-03-23] MEDS: CEPHALEXIN 500 MG CAPSULE PO SCH (22:17)
[2021-03-23 23:18] VITALS: BP 124/68
[2021-03-24 03:56] VITALS: BP 133/82
[2021-03-24 04:43] LABS: BASOPHILS % (AUTO) 0.2 % (0.0-5.0); EOSINOPHILS % (AUTO) 3.1 % (0.0-8.0); HEMATOCRIT 34.9 % (36-48); LYMPHOCYTES % (AUTO) 23.8 % (21.0-51.0); MEAN CORPUSCULAR HEMOGLOBIN 24.8 pg (27.0-33.0); MEAN CORPUSCULAR HGB CONC 29.8 g/dL (32.0-36.0); MEAN CORPUSCULAR VOLUME 83.3 fL (79-99); MONOCYTES % (AUTO) 7.6 % (3.0-13.0); NEUTROPHILS % (AUTO) 64.8 % (40.0-77.0); PLATELET COUNT (AUTO) 297 K/uL (130-400); RED BLOOD CELL COUNT(AUTO) 4.19 MIL/uL (4.00-5.50); RED CELL DISTRIBUTION WIDTH 15.9 % (11.0-15.5)
[2021-03-24 05:03] LABS: CREATININE 1.5 mg/dL (0.5-1.5); POTASSIUM 4.1 mmol/L (3.5-5.1)
[2021-03-24] MEDS: INSULIN HUMULIN R 100 UNIT/ML 3ML SQ SCH ×4 (06:38→19:50)
[2021-03-24 08:05] VITALS: BP 141/89
[2021-03-24] MEDS: CEPHALEXIN 500 MG CAPSULE PO SCH ×3 (10:10→21:01)
[2021-03-24] MEDS: FAMOTIDINE 20MG TAB PO SCH ×2 (10:10→19:54)
[2021-03-24] MEDS: ACETAMINOPHEN WITH CODEINE 1 TAB TAB PO PRN ×2 (10:10→17:04)
[2021-03-24] MEDS: FUROSEMIDE 40 MG TABLET PO SCH (10:10)
[2021-03-24] MEDS: ALLOPURINOL 100 MG TABLET PO SCH (10:10)
[2021-03-24] MEDS: ENOXAPARIN SODIUM 40 MG/0.4 ML SYRINGE SQ SCH (10:11)
[2021-03-24 11:51] VITALS: BP 136/71
[2021-03-24] MEDS: VANCOMYCIN 1.75GM/250ML NS IV SCH ×4 (12:51→23:21)
[2021-03-24 16:54] VITALS: BP 145/70
[2021-03-24] MEDS: HYDROCODONE/ACETAMINOPHEN 5/325 MG TAB PO PRN (19:55)
[2021-03-24 20:03] VITALS: BP 163/68
[2021-03-25] VITALS (7 sets, daily range): BP systolic 117–154; BP diastolic 52–72
[2021-03-25] MEDS: HYDROCODONE/ACETAMINOPHEN 5/325 MG TAB PO PRN ×5 (00:03→20:32)
[2021-03-25] MEDS: INSULIN HUMULIN R 100 UNIT/ML 3ML SQ SCH ×4 (03:56→20:33)
[2021-03-25] MEDS: CEPHALEXIN 500 MG CAPSULE PO SCH ×3 (06:02→20:32)
[2021-03-25] MEDS: ENOXAPARIN SODIUM 40 MG/0.4 ML SYRINGE SQ SCH (09:00)
[2021-03-25] MEDS: FUROSEMIDE 40 MG TABLET PO SCH (10:49)
[2021-03-25] MEDS: FAMOTIDINE 20MG TAB PO SCH ×2 (10:49→20:32)
[2021-03-25] MEDS: ALLOPURINOL 100 MG TABLET PO SCH (10:50)
[2021-03-25] MEDS: VANCOMYCIN 1.75GM/250ML NS IV SCH ×2 (12:00)
[2021-03-26 00:41] LABS: CREATININE 1.4 mg/dL (0.5-1.5); POTASSIUM 3.8 mmol/L (3.5-5.1)
[2021-03-26 00:44] LABS: HEMATOCRIT 33.2 % (36-48); MEAN CORPUSCULAR HEMOGLOBIN 25.1 pg (27.0-33.0); MEAN CORPUSCULAR HGB CONC 29.5 g/dL (32.0-36.0); MEAN CORPUSCULAR VOLUME 85.1 fL (79-99); RED BLOOD CELL COUNT(AUTO) 3.9 MIL/uL (4.00-5.50); WHITE BLOOD COUNT (AUTO) 10.1 K/uL (4.8-10.8)
[2021-03-26] MEDS ORDERED: PHARMACY COMMUNICATION MISC SCH (01:00)
[2021-03-26] MEDS: HYDROCODONE/ACETAMINOPHEN 5/325 MG TAB PO PRN ×4 (03:59→19:51)
[2021-03-26 04:16] VITALS: BP 136/76
[2021-03-26] MEDS: CEPHALEXIN 500 MG CAPSULE PO SCH ×3 (05:35→19:48)
[2021-03-26] MEDS: INSULIN HUMULIN R 100 UNIT/ML 3ML SQ SCH ×4 (06:33→19:47)
[2021-03-26 07:30] VITALS: BP 128/74
[2021-03-26] MEDS: ENOXAPARIN SODIUM 40 MG/0.4 ML SYRINGE SQ SCH ×2 (09:00→09:55)
[2021-03-26] MEDS: FUROSEMIDE 40 MG TABLET PO SCH (09:54)
[2021-03-26] MEDS: ALLOPURINOL 100 MG TABLET PO SCH (09:54)
[2021-03-26] MEDS: FAMOTIDINE 20MG TAB PO SCH ×2 (09:54→19:47)
[2021-03-26 11:00] VITALS: BP 129/77
[2021-03-26] MEDS: VANCOMYCIN 1.75GM/250ML NS IV SCH ×4 (12:15)
[2021-03-26] MEDS: GENTAMICIN SULFATE 0.3% 3.5 GM OPHTH OINT OU SCH (15:35)
[2021-03-26] MEDS: SODIUM HYPOCHLORITE 0.125% 473 ML SOLUTION TP SCH (15:35)
[2021-03-26 16:00] VITALS: BP 142/88
[2021-03-26 19:53] VITALS: BP 154/86
[2021-03-26 23:25] VITALS: BP 158/83
[2021-03-27] MEDS: VANCOMYCIN 1.75GM/250ML NS IV SCH ×4 (00:14→12:00)
[2021-03-27] MEDS: HYDROCODONE/ACETAMINOPHEN 5/325 MG TAB PO PRN (00:15)
[2021-03-27 03:44] VITALS: BP 160/88
[2021-03-27] MEDS: CEPHALEXIN 500 MG CAPSULE PO SCH ×2 (05:34→15:28)
[2021-03-27 05:35] LABS: BASOPHILS % (AUTO) 0.1 % (0.0-5.0); HEMATOCRIT 33.4 % (36-48); LYMPHOCYTES % (AUTO) 21.7 % (21.0-51.0); MEAN CORPUSCULAR HEMOGLOBIN 24.9 pg (27.0-33.0); MEAN CORPUSCULAR HGB CONC 29.3 g/dL (32.0-36.0); MONOCYTES % (AUTO) 8.6 % (3.0-13.0); NEUTROPHILS % (AUTO) 65.2 % (40.0-77.0); PLATELET COUNT (AUTO) 274 K/uL (130-400); RED BLOOD CELL COUNT(AUTO) 3.93 MIL/uL (4.00-5.50); WHITE BLOOD COUNT (AUTO) 7.8 K/uL (4.8-10.8)
[2021-03-27 05:51] LABS: CREATININE 1.5 mg/dL (0.5-1.5); POTASSIUM 3.8 mmol/L (3.5-5.1)
[2021-03-27] MEDS: INSULIN HUMULIN R 100 UNIT/ML 3ML SQ SCH ×3 (07:06→16:13)
[2021-03-27 08:00] VITALS: BP 155/94
[2021-03-27] MEDS: ENOXAPARIN SODIUM 40 MG/0.4 ML SYRINGE SQ SCH (09:00)
[2021-03-27] MEDS: GENTAMICIN SULFATE 0.3% 3.5 GM OPHTH OINT OU SCH (09:00)
[2021-03-27] MEDS: SODIUM HYPOCHLORITE 0.125% 473 ML SOLUTION TP SCH (09:00)
[2021-03-27] MEDS: FUROSEMIDE 40 MG TABLET PO SCH (10:12)
[2021-03-27] MEDS: ALLOPURINOL 100 MG TABLET PO SCH (10:12)
[2021-03-27] MEDS: FAMOTIDINE 20MG TAB PO SCH (10:12)
[2021-03-27 12:00] VITALS: BP 185/94
[2021-03-27] MEDS ORDERED: GENTOO OU (13:12)
[2021-03-27] MEDS ORDERED: ALLO100T PO (13:12)
[2021-03-27] MEDS ORDERED: FAMO20TA8 PO (13:12)
[2021-03-27] MEDS ORDERED: CEPH500C2 PO (13:12)
[2021-03-27 16:00] VITALS: BP 171/94
[2021-03-27] MEDS ORDERED: GENTAMICIN 15 GM CREAM TP SCH (17:00)
[2021-03-27] MEDS ORDERED: DOXY100T2 PO (17:02)
[2021-03-27] MEDS ORDERED: HYDRALAZINE 20MG/ML VIAL IV PRN (17:30)
== END 2021-03-27 18:30 | disposition home or self-care (01) | DRG 603 ==
LOC: EDH 13:42 → EDHIP 13:43 → OBSVTOIN 13:43 → 3CH 22:17
PROVIDERS: ADMIT Internal Medicine; ATTEND Internal Medicine
DX: L03.116 Cellulitis of left lower limb (principal); L97.919 Non-pressure chronic ulcer of unspecified part of right lower leg with unspecified severity; L97.929 Non-pressure chronic ulcer of unspecified part of left lower leg with unspecified severity; Z68.45 Body mass index [BMI] 70 or greater, adult; M10.9 Gout, unspecified; E11.621 Type 2 diabetes mellitus with foot ulcer; L03.115 Cellulitis of right lower limb; I10 Essential (primary) hypertension; I89.0 Lymphedema, not elsewhere classified; E66.01 Morbid (severe) obesity due to excess calories; Z20.822 Contact with and (suspected) exposure to COVID-19; Z83.3 Family history of diabetes mellitus; Z82.49 Family history of ischemic heart disease and other diseases of the circulatory system
CPT/HCPCS: 36415; 80048; 80053; 80202; 82948; 83036; 83605; 83735; 84100; 85025; 85027; 87040; 87070; 87076; 87077; 87186; 87635; C9803; G0378; J1650; J2543; J3370; J7050

== ENCOUNTER → 2025-03-14 | Outpatient (CLI) | payer OTHER ==
[~2025-03-14] MED LIST changes: -AMMO385C4 TP; -APIX5TAB PO; +CEPH500C2 PO; +DOXY100T2 PO; +FAMO20TA8 PO; -FURO20TA4 PO; +GENTOO OU; -HYDR25TA PO; -LEVO750T46 PO; -LOSA25TA2 PO; -METF-444 PO; -METH-811 PO; -METO50TA9 PO
--- NOTE | 2025-03-15 12:42 | HMCIMG ---
EXAM: CR Left Knee, 3 views. CLINICAL HISTORY: Pain. COMPARISON: None provided. FINDINGS: No acute fracture or aggressive appearing osseous lesion. Medial tibio-femoral joint space is reduced. Osteophytic lipping of articular margin is noted. Generalized osteopenia is seen. There is no joint effusion appreciated. The soft tissues are unremarkable. IMPRESSION: No fracture or dislocation. Moderate osteoarthritis. /[place]
--- NOTE | 2025-03-15 12:42 | HMCIMG ---
EXAM: CR Chest, 1 views. CLINICAL HISTORY: Cough. COMPARISON: None provided. FINDINGS: The lungs show no infiltrate or other acute findings. No pleural effusion or pneumothorax. The cardiomediastinal silhouette is within normal limits. No acute osseous abnormality. IMPRESSION: 1. No acute cardiopulmonary pathology is evident. /[place]
== END | disposition home or self-care (01) ==
LOC: RAH 15:50
PROVIDERS: ATTEND Internal Medicine
DX: M17.12 Unilateral primary osteoarthritis, left knee (principal); M85.88 Other specified disorders of bone density and structure, other site; I10 Essential (primary) hypertension; M25.562 Pain in left knee
CPT/HCPCS: 71046; 73560